=== PATIENT | female | born 1955 | race Caucasian/White ===

== ENCOUNTER 2016-06-27 14:20 | Emergency (ER) | payer BC ==
[~2016-06-27] VITALS: Ht 162.6 cm; Wt 99.0 kg
[~2016-06-27 14:20] MED LIST: ALBU1AER INH; ALBU2.5I INH; FAMO20 PO; GARL500C5 PO; HYDR-2768 PO; METF500 PO; METO50TA PO; TAB-TAB PO; VITA400C70 PO
[2016-06-27 14:25] VITALS: BP 123/79; PULSE 80; RESP 18; TEMP 98.1; O2SAT 98
--- NOTE | 2016-06-27 14:43 | PD ---
HPI Chief Complaint: Cold / Flu Symptoms Time Seen by Provider: 14:42 Travel History International Travel<30 days: No Contact w/Intl Traveler<30days: No Traveled to known affect area: No History of Present Illness HPI 60-year-old female coming in with 3 day history of increasing sinus congestion, headache, postnasal drip, and cough. She is an asthmatic, but uses albuterol nebulizers and metered-dose inhalers for her wheezing, but she feels this is more a sinus issue today. She feels the her breathing is actually normal except she gets coughing jag several times daily from a tickle in her throat. She has not had significant fever, but today she feels unwell. She denies body aches, nausea, vomiting, or diarrhea. She is allergic to adhesives , Lortab, shellfish, Terramycin, and Toradol. PFSH Past Medical History Arthritis: Yes Asthma: Yes (IRRITATION AND COUGH) Cancer: No Cardiovascular Problems: Yes (HTN) COPD: No Cerebrovascular Accident: No Diabetes: Yes Diminished Hearing: No Endocrine: Yes Gastrointestinal Disorders: Yes (REFLUX) GERD: Yes Genitourinary: No Hepatitis: No Hiatal Hernia: Yes (POSSIBLE) Hypertension: Yes Immune Disorder: No Implanted Vascular Access Dvce: Yes Kidney Stones: No Musculoskeletal: Yes (R/A - 2DISCS AND PLATE FUSION C5,6,7NECK, LEFT CARPAL TUNNEL) Neurologic: Yes (NEUROPATHY HAMMER TOES) Psychiatric: No Reproductive: No Respiratory: Yes (ASTHMA) Immunizations Current: Yes Migraines: No Renal Failure: No Seizures: Yes Sleep Apnea: No Thyroid Disease: No Ulcer: Yes Menopausal: Yes Miscarriage: 1 Dilation and Curettage (D&C): Yes Past Surgical History Abdominal Surgery: Yes (BOWEL RESECTION) Appendectomy: Yes Body Medical Devices: PLATE IN NECK Cardiac Surgery: No Ear Surgery: No Endocrine Surgery: No Eye Surgery: No Gynecologic Surgery: Yes (D&C) Joint Replacement: Yes (PLATE IN NECK, LTK, RTK) Oral Surgery: Yes (TONSILLECTOMY) Thoracic Surgery: No Tonsillectomy: Yes Other Surgery: Yes Social History Alcohol Use: No Tobacco Use: No Substance Use: No Allergies-Medications (Allergen,Severity, Reaction): Coded Allergies: Shellfish (Verified Allergy, Severe, THROAT CLOSES, 06/27/16) Adhesives (Verified Allergy, Intermediate, Itching, 06/27/16) Lortab (Verified Allergy, Intermediate, ITCH, 06/27/16) Terramycin (Verified Allergy, Intermediate, Rash, 06/27/16) Toradol (Verified Adverse Reaction, Intermediate, GI UPSET, 06/27/16) Reported Meds & Prescriptions Reported Meds & Active Scripts Active Tessalon Perles (Benzonatate) 100 Mg Cap 100 Mg PO TID PRN Flonase Allergy Relief Children Nasal [place] (Fluticasone Nasal [place]) 50 Mcg/ Act [place] 2 [place] EACH NARE DAILY 50 mcg/spray Amoxicillin 875 Mg Tab 875 Mg PO BID Hctz (Hydrochlorothiazide) 25 Mg Tab 25 Mg PO BID Metoprolol Tartrate 50 mg (Metoprolol Tartrate) 50 Mg Tab 50 Mg PO BID Proair Hfa (Albuterol Sulfate) 8.5 Gm Aero 2 Puff INH Q4H PRN * SHAKE WELL BEFORE USE * Reported Enalapril (Enalapril Maleate) 5 Mg Tab 5 Mg PO DAILY Resp: Albuterol 2.5 Mg/3 Ml Neb (Albuterol Sulfate) 2.5 Mg/3 Ml Nebu 2.5 Mg INH Q6H PRN Glucophage 500 mg (Metformin HCl) 500 Mg Tab 500 Mg PO TIDAC Multivitamin (Multivitamins) 1 Tab Tab 1 Tab PO DAILY Vitamin E-400 (Vitamin E) 400 Unit Cap 400 Unit PO DAILY Garlic 500 Mg Cap 1,000 Mg PO DAILY Pepcid 20 Mg Tab (Famotidine) 20 Mg Tab 20 Mg PO DAILY Review of Systems General / Constitutional: No: Fever, Chills Eyes: No: Visual changes HENT: Positive: Headaches, Sore Throat, Rhinitis, Rhinorrhea, Congestion, No: Vertigo, Lightheadedness, Nosebleed, Neck Stiffness, Neck Pain, Masses, Gingival Bleeding, Dental Difficulties, Ear Discharge, Earache Cardiovascular: No: Chest Pain or Discomfort Respiratory: Positive: Cough, Shortness of Breath, Wheezing, No: Sneezing, Orthopnea, Hemoptysis, Night Sweats, Pleuritic Pain Gastrointestinal: No: Nausea, Vomiting, Diarrhea, Abdominal Pain Genitourinary: No: Dysuria Musculoskeletal: No: Pain Skin: No Rash Neurologic: No: Weakness Psychiatric: No: Depression Endocrine: No: Polydipsia Hematologic/Lymphatic: No: Easy Bruising Physical Exam Narrative GENERAL: Patient appears no acute distress. Patient is able to speak in full sentences without difficulty. SKIN: Warm and dry. Normal color. Normal turgor. HEAD: Atraumatic. Normocephalic. EYES: Pupils equal and round. No scleral icterus. No injection or drainage. ENT: No nasal bleeding with moderate white nasal discharge. Mucous membranes pink and moist. Patient has moderate sinus tenderness with palpation to the maxillary sinuses. TMs are dull bilaterally but no injection. Pharynx appears somewhat injected and inflamed with cobblestoning present and postnasal drip noted. There is no significant lymphadenopathy or tonsillitis. There is no exudate. NECK: Trachea midline. No JVD. Supple and nontender. CARDIOVASCULAR: Regular rate and rhythm. RESPIRATORY: No accessory muscle use. Clear to auscultation. Breath sounds equal bilaterally. MUSCULOSKELETAL: Extremities without clubbing, cyanosis, or edema. No obvious deformities. NEUROLOGICAL: Awake and alert. No obvious cranial nerve deficits. Motor grossly within normal limits. Five out of 5 muscle strength in the arms and legs. Normal speech. PSYCHIATRIC: Appropriate mood and affect; insight and judgment normal. Data Data Last Documented VS Vital Signs Date Time Temp Pulse Resp B/P Pulse Ox O2 Delivery O2 Flow Rate FiO2 06/27/16 14:25 98.1 80 18 123/79 98 MDM Medical Decision Making Medical Screen Exam Complete: Yes Emergency Medical Condition: Yes Differential Diagnosis Upper respiratory infection. Sinusitis. Postnasal drip. Asthma with acute exacerbation. Narrative Course Patient is medically stable at time of exam. Patient is felt to have a sinusitis which is exacerbating her asthma. Patient is treated with amoxicillin 875 twice a day 10 days. Patient is given Flonase nasal spray 2 sprays each nostril daily. Patient is given Tessalon Perles one every 6 hours when necessary cough #30. Patient is to use her albuterol as needed. Work note is given for this evening. Patient follow with her primary care physician as needed. Diagnosis Primary Impression: Sinusitis, acute Qualified Code: J01.90 - Acute non-recurrent sinusitis, unspecified location Referrals: Primary Care Physician Patient Instructions: General Instructions, Sinusitis (ED) Departure Forms: Work Release Enter return to work date: Jun 28, 2016 Additional Instructions: Patient is felt to have a sinusitis which is exacerbating her asthma. Patient is treated with amoxicillin 875 twice a day 10 days. Patient is given Flonase nasal spray 2 sprays each nostril daily. Patient is given Tessalon Perles one every 6 hours when necessary cough #30. Patient is to use her albuterol as needed. Work note is given for this evening. Patient follow with her primary care physician as needed. Med/Other Pt SpecificInfo: Prescription(s) given Scripts Benzonatate (Tessalon Perles)100 Mg [id number] Mg PO TID PRN (COUGH) #15 CAP Ref 0 Prov:Artemio Ross MD 06/27/16 Fluticasone Nasal [place] (Flonase Allergy Relief Children Nasal [place])50 Mcg/Act Spray2 [place] EACH NARE DAILY #1 BOTTLE 50 mcg/spray Prov:Artemio Ross MD 06/27/16 Amoxicillin 875 Mg Qns457 Mg PO BID #20 TAB Prov:Artemio Ross MD 06/27/16 Disposition: 01 DISCHARGE HOME Condition: Stable Saurav Blanco Jun 27, 2016 14:42
[2016-06-27] MEDS ORDERED: ENAL5TAB PO (14:52)
[2016-06-27] MEDS ORDERED: FLUT1SPR9 EACH NARE (14:55)
[2016-06-27] MEDS ORDERED: AMOX875T PO (14:55)
[2016-06-27] MEDS ORDERED: BENZ100 PO (14:55)
[2016-07-09] MEDS ORDERED: ALBUAER3 INH (11:45)
[2016-07-09] MEDS ORDERED: ALBU.5I NEB (11:45)
[2016-07-09] MEDS ORDERED: MULT1TAB84 PO (11:45)
[2016-07-09] MEDS ORDERED: METO50TA PO (11:45)
[2016-07-09] MEDS ORDERED: VITA400C2 PO (11:45)
[2016-07-09] MEDS ORDERED: FAMO1TAB37 PO (11:45)
[2016-07-09] MEDS ORDERED: METF500T PO (11:45)
[2016-07-09] MEDS ORDERED: GARL1CAP PO (11:45)
[2016-07-09] MEDS ORDERED: ALEV220T14 PO (11:45)
[2016-07-09] MEDS ORDERED: HYDR25TA5 PO (11:45)
[2016-07-09] MEDS ORDERED: BENA25TA3 PO (11:45)
== END 2016-06-27 15:05 | disposition home or self-care (01) ==
LOC: PHEFT 14:20
DX: J01.90 Acute sinusitis, unspecified (principal); J45.909 Unspecified asthma, uncomplicated
CPT/HCPCS: 99283

== ENCOUNTER → 2016-07-09 | Outpatient (CLI) | payer BC ==
[~2016-07-09] MED LIST changes: +ALBU.5I NEB; +ALBUAER3 INH; +ALEV220T14 PO; +AMOX875T PO; +BENA25TA3 PO; +BENZ100 PO; +ENAL5TAB PO; +FAMO1TAB37 PO; +FLUT1SPR9 EACH NARE; +GARL1CAP PO; +HYDR25TA5 PO; +METF500T PO; +MULT1TAB84 PO; +VITA400C2 PO
== END ==
LOC: PHPRE 11:15
PROVIDERS: ATTEND Obstetrics & Gynecology
DX: Z01.812 Encounter for preprocedural laboratory examination (principal); N95.0 Postmenopausal bleeding; N84.1 Polyp of cervix uteri

== ENCOUNTER → 2016-07-14 | Day surgery (SDC) | payer BC ==
[~2016-07-14] VITALS: Ht 162.6 cm; Wt 96.8 kg
[~2016-07-14] MED LIST changes: +ACETAMINOPHEN 1000 MG/100 ML VIAL IV ONE; -ALBU1AER INH; -ALBU2.5I INH; -AMOX875T PO; -BENZ100 PO; -FAMO20 PO; -FLUT1SPR9 EACH NARE; -GARL500C5 PO; -HYDR-2768 PO; +LACTATED RINGER'S 1000 ML INJ 1,000 ML ONE; -METF500 PO; +MIDAZOLAM HCL 2 MG/2 ML VIAL ONE; +MORPHINE SULFATE 4 MG/ML INJ ONE; +ONDANSETRON HCL 4 MG/2 ML VIAL IV PUSH ONE; +PROPOFOL 200 MG/20 ML AMP IV ONE; +SODIUM CHLORIDE 0.9% INJ 50 ML ONE; -TAB-TAB PO; -VITA400C70 PO; +ceFAZolin INJ 1,000 MG VIAL ONE
[2016-07-14 08:35] VITALS: BP 138/78; PULSE 85; RESP 20; TEMP 97.8; O2SAT 95
[2016-07-14 10:52] VITALS: TEMP 98.1
[2016-07-14 12:52] VITALS: BP 116/65; PULSE 70; RESP 20; O2SAT 95
--- NOTE | 2016-07-16 20:31 | MP ---
cc: KYA SAGE MD DATE OF SURGERY: 07/16/2016. PREOPERATIVE DIAGNOSIS: Postmenopausal bleeding, endometrial polyps. POSTOPERATIVE DIAGNOSIS: Postmenopausal bleeding, endometrial polyps. OPERATION: Hysteroscopy, dilation and curettage. SURGEON: Kya Sage M.D. ANESTHESIA: Dr. Rosales / [employer] student /LMA. COMPLICATIONS: None. ESTIMATED BLOOD LOSS: 50 mL SPECIMENS: Endocervical curettings, endometrial curettings. INDICATIONS FOR THE PROCEDURE: This 60-year-old patient has had postmenopausal bleeding on a regular basis for over a year. When she did report it, she said she had not said anything sooner because she thought it was normal periods at age 60. The patient was counseled for hysteroscopy and D&C after finding a thickened and irregular endometrium on ultrasound. FINDINGS AT THE TIME OF SURGERY: The patient was identified as having two endometrial polyps; one appeared necrotic and the other pink. Both were removed in their entirety by follow-up hysteroscopy. There was a moderate amount of endocervical tissue and mucus but the endometrium was otherwise fairly atrophic with a small specimen. DESCRIPTION OF THE PROCEDURE IN DETAIL: The patient was taken to the operating room and placed supine on the operating room table. After general anesthesia by LMA, the patient was prepped and draped in Yellofin stirrups. The posterior lip of the cervix was grasped with a single-tooth tenaculum using an open-sided speculum. Endocervical curettings were moderate and mostly mucous. Hysteroscopic view using saline as distension media identified the polyps described above. These were extracted with polyp forceps followed by vigorous curettage with a small sharp curette in order to get rid of the stems of the polyps. This was confirmed by repeat hysteroscopy and the procedure then being complete the instruments were removed from the vagina. The patient was awake and taken to the recovery room breathing on her own. She tolerated the procedure well. Sponge, needle and instrument counts were correct. Kya Sage MD [facility] /10:59 AM /8:26 PM
== END | disposition home or self-care (01) ==
LOC: PHSDC 07:41
PROVIDERS: ATTEND Obstetrics & Gynecology
DX: N95.0 Postmenopausal bleeding (principal); N84.0 Polyp of corpus uteri; E11.9 Type 2 diabetes mellitus without complications; I10 Essential (primary) hypertension
CPT/HCPCS: 00952; 58558; 82948; 88305; J0131; J0690; J2250; J2270; J2405; J3010; J7120

== ENCOUNTER 2017-07-03 17:53 | Emergency (ER) | payer BC ==
[~2017-07-03] VITALS: Ht 162.6 cm; Wt 95.1 kg
[~2017-07-03 17:53] MED LIST changes: -ACETAMINOPHEN 1000 MG/100 ML VIAL IV ONE; -LACTATED RINGER'S 1000 ML INJ 1,000 ML ONE; -MIDAZOLAM HCL 2 MG/2 ML VIAL ONE; -MORPHINE SULFATE 4 MG/ML INJ ONE; -ONDANSETRON HCL 4 MG/2 ML VIAL IV PUSH ONE; -PROPOFOL 200 MG/20 ML AMP IV ONE; -SODIUM CHLORIDE 0.9% INJ 50 ML ONE; -ceFAZolin INJ 1,000 MG VIAL ONE
[2017-07-03 18:08] VITALS: BP 151/72; PULSE 80; RESP 16; TEMP 97.8; O2SAT 97
--- NOTE | 2017-07-03 18:28 | PD ---
HPI Chief Complaint: Fall Time Seen by Provider: 18:15 Travel History International Travel<30 days: No Contact w/Intl Traveler<30days: No Traveled to known affect area: No History of Present Illness HPI 61-year-old female that presents to the ED for evaluation of pain to the left hip and right shoulder after a fall that she had about 6 weeks ago. Per patient she examined the tripped and fell. She's been having pain ever since and is not getting better which is what prompted evaluation. Per patient she's been able to deal with and taking [id number] remedies with some relief. Per patient today the pain more significant on the left hip as well as the right shoulder. She denies any her head or losing consciousness. She has a history of RA but takes no medications other than [id number] medications. She does take methotrexate for it but she stopped that because of the concerns of the side effects. She has not seen anybody for this. She has been able to ambulate with some discomfort. Pain mainly to the shoulder around the hip. No other injuries reported. No loss of consciousness. No head injury. No blood thinner use. No urinary or bowel movement issues. No abdominal pain. She does have multiple allergies to different medications. She states that the pain is currently 8 out of 10 especially on the left hip. PFSH Past Medical History Arthritis: Yes Asthma: Yes (IRRITATION AND COUGH) Autoimmune Disease: Yes (RA) Cancer: No Cardiovascular Problems: Yes (htn on meds, bundle block) COPD: No Cerebrovascular Accident: No Diabetes: Yes (type 2) Patient Takes Glucophage: Yes Diminished Hearing: No Endocrine: Yes Gastrointestinal Disorders: Yes (REFLUX) GERD: Yes Genitourinary: No Headaches: No Hepatitis: No Hiatal Hernia: Yes Hypertension: Yes Immune Disorder: No Implanted Vascular Access Dvce: Yes Kidney Stones: No Medical other: Yes (VAGINAL HERPES, ROSASIA) Musculoskeletal: Yes (R/A , DISCS AND PLATE FUSION C5,6,7NECK, LEFT CARPAL TUNNEL) Neurologic: Yes (NEUROPATHY HAMMER TOES) Psychiatric: No Reproductive: No Respiratory: Yes (asthma) Immunizations Current: Yes Migraines: No Renal Failure: No Seizures: Yes Sleep Apnea: No Thyroid Disease: No Ulcer: Yes ?: Not Menopausal: Yes Miscarriage: 1 Dilation and Curettage (D&C): Yes Past Surgical History Abdominal Surgery: Yes (BOWEL RESECTION) Appendectomy: Yes Body Medical Devices: PLATE IN NECK Cardiac Surgery: No Ear Surgery: No Endocrine Surgery: No Eye Surgery: No Gynecologic Surgery: Yes (D&C) Joint Replacement: Yes (PLATE IN NECK, LTK, RTK) Neurologic Surgery: No Oral Surgery: Yes (TONSILLECTOMY) Thoracic Surgery: No Tonsillectomy: Yes Other Surgery: Yes Social History Alcohol Use: No Tobacco Use: No Substance Use: No Allergies-Medications (Allergen,Severity, Reaction): Coded Allergies: shellfish derived (Unverified Allergy, Severe, THROAT CLOSES, 07/03/17) acetaminophen (Unverified Allergy, Intermediate, ITCH, 07/03/17) adhesive (Unverified Allergy, Intermediate, BLISTER AND REDDNESS, 07/03/17) hydrocodone (Unverified Allergy, Intermediate, ITCH, 07/03/17) oxytetracycline (Unverified Allergy, Intermediate, Rash, 07/03/17) ketorolac (Unverified Adverse Reaction, Intermediate, GI UPSET, 07/03/17) Reported Meds & Prescriptions Reported Meds & Active Scripts Active Prednisone 20 Mg Tab 20 Mg PO BID 5 Days Tylenol-Codeine #3 (Acetaminophen-Codeine) 300-30 mg Tab 1 Tab PO Q4H PRN Reported Aleve Arthritis (Naproxen Sodium) 220 Mg Tab 440 Mg PO BID Metoprolol Tartrate 50 Mg Tab 50 Mg PO BID Metformin (Metformin HCl) 500 Mg Tab 500 Mg PO TIDPC With meals Hydrochlorothiazide 25 Mg Tab 25 Mg PO BID Pepcid (Famotidine) 20 Mg Tab 20 Mg PO BID Albuterol Neb (Albuterol Sulfate) 2.5 Mg/0.5 Ml Neb 2.5 Mg NEB Q6HR NEB PRN Note: The Albuterol Sulfate Inhalation Solution is concentrated and must be diluted. Read complete instructions carefully before using. Proair Hfa 8.5 GM Inh (Albuterol Sulfate) 90 Mcg/Act Aer 2 Puff INH Q4-6H PRN 108 mcg/actuation Enalapril (Enalapril Maleate) 5 Mg Tab 5 Mg PO BID Review of Systems Except as stated in HPI: all other systems reviewed are Neg Physical Exam Narrative GENERAL: SKIN: Warm and dry. HEAD: Atraumatic. Normocephalic. EYES: Pupils equal and round. No scleral icterus. No injection or drainage. ENT: No nasal bleeding or discharge. Mucous membranes pink and moist. Tongue is midline. No uvula deviation. NECK: Trachea midline. No JVD. CARDIOVASCULAR: Regular rate and rhythm. RESPIRATORY: No accessory muscle use. Clear to auscultation. Breath sounds equal bilaterally. GASTROINTESTINAL: Abdomen soft, non-tender, nondistended. Hepatic and splenic margins not palpable. MUSCULOSKELETAL: Extremities without clubbing, cyanosis, or edema. No obvious deformities. No lumbar, thoracic, cervical spine tenderness to palpation. Full range of motion of the upper and lower extremities bilaterally. 2+ pulses bilaterally. Patient does have pain with abduction of the right shoulder. Patient has pain with range of motion of the left hip. No obvious deformity noted. Sensation intact bilaterally. NEUROLOGICAL: Awake and alert. No obvious cranial nerve deficits. Motor grossly within normal limits. Five out of 5 muscle strength in the arms and legs. Normal speech. PSYCHIATRIC: Appropriate mood and affect; insight and judgment normal. Data Data Last Documented VS Vital Signs Date Time Temp Pulse Resp B/P (MAP) Pulse Ox O2 Delivery O2 Flow Rate FiO2 07/03/17 18:08 97.8 80 16 151/72 (98) 97 Orders Orders Hip, Uni(Ap&Lat) W Ap Pelvis (07/03/17 18:20) Humerus (Min 2vws) (07/03/17 18:20) Ice/Cold Pack (07/03/17 18:20) Acetamin-Codeine 300-30 Mg (Tylenol-Code (07/03/17 18:30) Ed Discharge Order (07/03/17 19:57) [facility] Medical Decision Making Medical Screen Exam Complete: Yes Emergency Medical Condition: Yes Medical Record Reviewed: Yes Interpretation(s) Last Impressions Humerus X-Ray 07/03/171819 Signed Impressions: Service Date/Time: Monday, July 03, 2017 19:14 - CONCLUSION: 1. No acute findings. Dario Rush MD Hip and Pelvis X-Ray 07/03/171819 Signed Impressions: Service Date/Time: Monday, July 03, 2017 19:14 - CONCLUSION: 1. No acute findings. Dario Rush MD Differential Diagnosis Fracture versus sprain versus strain versus arthritis versus rheumatoid arthritis versus acute on chronic pain Narrative Course 61-year-old female that presents to the ED for evaluation of fall. Patient was properly examined and was found to have signs and symptoms concerning for possible skeletal pain. X-rays were ordered. Patient given pain medication by mouth. X-ray showed no sign of acute bony injury. Patient was reassured. This time is appears to be likely a muscle skeletal pain. Likely from rheumatoid arthritis and fall. This time I recommend trial of anti- inflammatories like prednisone as patient cannot take any NSAIDs secondary to history of ulcers. She'll be given a prescription for tylenol# 3 to help with her pain. She was instructed to follow with her doctor. Follow up with PCP. See ED worsening symptoms. Diagnosis Primary Impression: Fall Qualified Codes: W19.XXXA - Unspecified fall, initial encounter Additional Impressions: Contusion of hip, left Qualified Codes: S70.02XA - Contusion of left hip, initial encounter Right shoulder tendinitis Patient Instructions: General Instructions Additional Instructions: Take medications as prescribed. Follow-up with PCP. See ED for any worsening symptoms. Do not drink or drive while taking pain medication. Apply ice or heat as needed for pain Med/Other Pt SpecificInfo: Prescription(s) given Scripts Prednisone (Prednisone) 20 Mg Tab 20 MG PO BID for 5 Days, #10 TAB 0 Refills Prov: Rigoberto Caro MD 07/03/17 Acetaminophen-Codeine (Tylenol-Codeine #3) 300-30 mg Tab 1 TAB PO Q4H Y for PAIN, #14 TAB 0 Refills Prov: Rigoberto Caro MD 07/03/17 Disposition: 01 DISCHARGE HOME Condition: Stable Faustino Duong Jul 03, 2017 18:28
[2017-07-03] MEDS ORDERED: ACETAMINOPHEN/CODEINE 300 MG/30 MG TAB PO ONE (18:30)
--- NOTE | 2017-07-03 19:44 | RADRPT ---
EXAM DATE/TIME: 07/03/2017 19:14 [facility] COMPARISON: No previous studies available for comparison. INDICATIONS : Fall. Left hip pain. MEDICAL HISTORY : Arthritis. SURGICAL HISTORY : None. ENCOUNTER: Initial ACUITY: 1 week PAIN SCORE: 6/10 LOCATION: Left pelvis FINDINGS: Examination of the left hip was performed with AP Pelvis. The primary and secondary trabecular patte rn of the femoral neck is intact. The hip joint is of normal width without significant sclerosis or bony hypertrophy. The acetabulum is grossly intact. CONCLUSION: 1. No acute findings. Dario Rush MD on July 03, 2017 at 19:41 Board Certified Radiologist. This report was verified electronically.
--- NOTE | 2017-07-03 19:45 | RADRPT ---
EXAM DATE/TIME: 07/03/2017 19:14 [facility] COMPARISON: No previous studies available for comparison. INDICATIONS : Fall. Right upper arm pain. MEDICAL HISTORY : None. SURGICAL HISTORY : None. ENCOUNTER: Initial ACUITY: 1 week PAIN SCORE: 7/10 LOCATION: Right upper extremity FINDINGS: Two view examination of the right humerus demonstrates no evidence of fracture or dislocation. Bony mineralization is normal. The soft tissue structures are intact. CONCLUSION: 1. No acute findings. Dario Rush MD on July 03, 2017 at 19:43 Board Certified Radiologist. This report was verified electronically.
[2017-07-03] MEDS ORDERED: PRED20 PO (19:57)
[2017-07-03] MEDS ORDERED: TYLETAB34 PO (19:57)
[2017-07-03 20:01] VITALS: RESP 18
== END 2017-07-03 20:18 | disposition home or self-care (01) ==
LOC: PHEFT 17:53
DX: S70.02XA Contusion of left hip, initial encounter (principal); W01.0XXA Fall on same level from slipping, tripping and stumbling without subsequent striking against object, initial encounter; M06.9 Rheumatoid arthritis, unspecified; I10 Essential (primary) hypertension; J45.909 Unspecified asthma, uncomplicated; E11.9 Type 2 diabetes mellitus without complications; Z79.84 Long term (current) use of oral hypoglycemic drugs
CPT/HCPCS: 73060; 73502; 99284